=== PATIENT | male | born 1950 | race Caucasian/White ===

== ENCOUNTER 2022-04-06 21:47 | Emergency (ER) | payer MEDICARE, SELFPAY ==
[2022-04-06] VITALS (91 sets, daily range): BP systolic 104–169; BP diastolic 57–89; PULSE 62–178; RESP 10–28; TEMP 36.4–36.7; O2SAT 90–99
--- NOTE | 2022-04-06 21:45 | RT.EKG_ITS ---
APPROVED REPORT Exam: Resting ECG Reason for Exam: chest pain Patient Location: E HR:107 bpm ECG Measurements Heart Rate 107 AXIS ME 227 P 33 QRSd 132 QRS -36 QT 369 T 80 QTc 492 Conclusion Sinus tachycardia. Ventricular tachycardia, unsustained.. Prolonged ME interval...ME >215, V-rate 91-120 Left bundle branch block...QRSd>120, broad/notched R
--- NOTE | 2022-04-06 21:45 | DI.RAD_ITS ---
Exam(s) XR PORTABLE CHEST AP EXAM: XR PORTABLE CHEST AP CLINICAL HISTORY: recurrent vtach TECHNIQUE: 2D digital imaging was performed. COMPARISON: No exams were available for comparison FINDINGS: The papillary pads project over the chest. LUNGS: Clear. No pleural abnormality seen. HEART: Normal size. Pacemaker. AORTA: Normal diameter. BONES: Degenerative changes in the spine Soft tissues: Unremarkable. IMPRESSION: No acute findings. DATA REPOSITORY: RADIATION DOSE DELIVERED:
[2022-04-06] MEDS: MAGNESIUM SULFATE 2 GM/50 ML BAG 100 GM (21:53)
[2022-04-06] MEDS: Amiodarone 150 MG/3 ML VIAL IVP (21:55)
--- NOTE | 2022-04-06 21:57 | ED.GENADUL_ITS ---
Discharge Plan Disposition Patient Disposition: Transfer-Acute Inpatient Care Specific Acute Inpt Facility: [facility] Condition: Critical Discharge Details Clinical Impression: Recurrent ventricular tachycardia Primary Care Provider: Nuzhat,Local ED Provider: Nolan Cunningham Medical Decision Making 72-year-old male states [place] to the emergency [place]. He developed sensation of fast heart rate and then had multiple, approximately 15 episodes of defibrillation/cardioversion by his pacemaker. He arrives to the ER with intermittent V. tach and further discharge of his pacemaker device. He is placed on a associate chief nurse, IV access x2 established. Patient given rhythm control with completion of amiodarone bolus and infusion, he was given 2 g of magnesium and 100 mg of lidocaine. Patient had recurrent runs of cyst stained monomorphic V. tach and is internal defibrillator continue to correct these. He was given an additional 2 g of magnesium, 1 amp of calcium gluconate and placed on an esmolol drip. Screening laboratories and chest x-ray obtained. White count 12, hematocrit 43, platelets 282. Troponin elevated at 291. BNP is 2650. BUN 38, creatinine 2.0. Sodium 145, potassium 3.6, chloride 106, bicarb 29. No acute cardiopulmonary abnormality on chest x-ray. I discussed the case with on-call cardiology at the [facility], Dr. Berry. He agrees with our current management and the need for urgent transfer. Lab Data Lab results reviewed: Yes I reviewed the patient's lab results. Labs: Laboratory Results - last 24 hr 04/06/22 04/06/22 04/06/22 22:04 22:04 22:04 WBC 12.67 H RBC 4.74 Hgb 14.1 Hct 43.3 MCV 91 MCH 29.7 MCHC 32.6 RDW 13.2 Plt Count 282 MPV 9.2 Immature Gran % 0.6 Neutrophils % 68.3 Lymphocytes % 17.4 Monocytes % 9.5 Eosinophils % 3.6 Basophils % 0.6 Nucleated RBC % 0.0 Absolute Neutrophils 8.65 H Absolute Lymphocytes 2.20 Absolute Monocytes 1.20 H Absolute Eosinophils 0.46 Absolute Basophils 0.08 PT 9.9 INR 1.0 APTT 25.7 Sodium 145 Potassium 3.6 Chloride 106 Carbon Dioxide 29.1 Anion Gap 9.9 BUN 38 H Creatinine 2.0 H Est GFR (CKD-EPI 2020) 34.59 Glucose 159 H Calcium 8.8 Magnesium 1.8 Total Bilirubin 0.4 AST 31 ALT 21 Alkaline Phosphatase 75 Troponin I 291 H* NT-Pro-B Natriuret Pep 2650 H Total Protein 7.1 Albumin 3.5 COVID-19 Source 04/06/22 22:50 WBC RBC Hgb Hct MCV MCH MCHC RDW Plt Count MPV Immature Gran % Neutrophils % Lymphocytes % Monocytes % Eosinophils % Basophils % Nucleated RBC % Absolute Neutrophils Absolute Lymphocytes Absolute Monocytes Absolute Eosinophils Absolute Basophils PT INR APTT Sodium Potassium Chloride Carbon Dioxide Anion Gap BUN Creatinine Est GFR (CKD-EPI 2020) Glucose Calcium Magnesium Total Bilirubin AST ALT Alkaline Phosphatase Troponin I NT-Pro-B Natriuret Pep Total Protein Albumin COVID-19 Source Nasal/Nares HPI General Mode of arrival: EMS . Date/Time Provider Initiated Documentation: 04/06/22 21:49 . Limitations to Documentation: no limitations . Information obtained by: patient . History of Present Illness 72 year old M presents to the emergency department with the chief complaint of Recurrent V. tach and pacemaker firing, described as severe and similar to prior episodes, and is localized to the chest. Patient started experiencing this minute(s) and it has been intermittent. No relieving factors improve symptom(s), No exacerbating factors reported . Patient did receive the following treatments prior to arrival, other (Amiodarone infusion initiated by EMS) Related Data Allergies Allergy/AdvReac Type Severity Reaction Status Date / Time No Known Allergies Allergy Unverified 04/06/22 21:48 Review of Systems Narrative: States he has a history of recurrent V. tach. Been taking his medication. Denies illness. Denies chest pain. No syncope. 8 systems were reviewed and otherwise negative [facility] All Active Problems (Updated 04/06/22 @ 22:34 by Nolan Cunningham MD) Recurrent ventricular tachycardia (Acute) Social History Smoking/Tobacco Use Status: Current every day Tobacco Type: cigarettes Years smoked: 60 Smoking risk assessment performed?: Yes Alcohol Intake: current Alcohol Intake frequency: holidays/special occasions only Alcohol type: beer, wine and hard liquor Drug use: Never Substance use type: does not use Do you feel safe at home: Yes Do you feel safe in your relationship?: Yes Exam Narrative Exam Narrative: GEN: awake, alert, oriented 3. Pleasant, well groomed, interactive. HEAD: Normocephalic, atraumatic ENT: Mucous membranes moist, oropharynx unremarkable, External ear exam unremarkable EYES: PERRL, EOMI NECK: Full ROM, no LUCIEN, no menigismus CHEST/RESP: Nontender, clear to auscultation bilateral, no wheeze/rhonchi/rales CARDIOVASCULAR: Regular and rapid, no murmur, rub kd. 2+ Rad pulse bilateral ABDOMEN: Soft, nontender, no mass. +Bowel sounds EXT: Full ROM, no edema, no rash Neuro: Grossly normal neurologic exam, conversant, interactive. Psych: Speech fluent, thoughts congruent, affect normal Critical Care Time Critical Care Time Critical Care Time: Yes Total Critical Care Time: 45 Attestation: Bedside care, discussion with consultants and family.
[2022-04-06 22:10] LABS: Abs Immature Grans 0.07 10^3/uL (0.0-0.06); Basophils % 0.6; Eosinophils % 3.6; HCT 43.3 % (40.0-50.0); HGB 14.1 g/dL (13.5-17.5); Immature Grans % 0.6; Lymphocytes % 17.4; MCH 29.7 pg (27.0-33.0); MCHC 32.6 % (32.0-36.0); MCV 91 fL (80-95); MPV 9.2 fL (8.0-11.0); Monocytes % 9.5; Neutrophils % 68.3; Platelet Count 282 10^3/uL (130-400); RBC 4.74 10^6/uL (4.36-5.78); RDW 13.2 % (11.8-14.1); RDW-SD 44.1 fL; WBC 12.67 10^3/uL (4.4-10.8)
[2022-04-06 22:11] LABS: Absolute Basophil Count 0.08 10^3/uL (0.0-0.2); Absolute Eosinophil Count 0.46 10^3/uL (0.0-0.7); Absolute Neutrophil Count 8.65 10^3/uL (1.2-6.7)
[2022-04-06] MEDS: MAGNESIUM SULFATE 2 GM/50 ML BAG IVPB (22:12)
[2022-04-06] MEDS: Calcium Gluconate 4.65 MEQ/10 ML VIAL 4.65 MG IVP (22:21)
[2022-04-06] MEDS: DEXTROSE 5%-WATER 250 ML (22:22)
[2022-04-06] MEDS: Normal Saline 1,000 ML 1000 ML IV (22:23)
[2022-04-06] MEDS: Amiodarone 150 MG/3 ML VIAL (22:25)
--- NOTE | 2022-04-06 22:29 | DI.VRAD_ITS ---
PROCEDURE INFORMATION: Exam: XR Chest Exam date and time: 04/06/2022 9:56 PM Age: 72 years old Clinical indication: Other: Recurrent vtach TECHNIQUE: Imaging protocol: Radiologic exam of the chest. Views: 1 view. COMPARISON: No relevant prior studies available. FINDINGS: Tubes, catheters and devices: Left subclavian transvenous pacemaker/AICD in place. Defibrillator pads project over the thoracesAtherosclerotic vascular disease. Lungs: Normal. Pleural spaces: Unremarkable. No pleural effusion. No pneumothorax. Heart/Mediastinum: Normal. Bones/joints: Multilevel thoracic spine degenerative disc space narrowing and osteophyte formation. IMPRESSION: No acute cardiopulmonary abnormality. Dictated and Authenticated by: Keenan Leigh MD. Ordering:CAS Francisco MD
[2022-04-06 22:31] LABS: PTT Activated 25.7 sec (21.0-27.5); Prothrombin Time 9.9 sec (9.3-11.0)
[2022-04-06 22:36] LABS: ALT 21 U/L (16-63); AST 31 U/L (15-37); Albumin 3.5 g/dL (3.4-5.0); Alkaline Phosphatase 75 U/L (46-116); Anion Gap 9.9 mmol/L (3-11); BUN 38 mg/dL (7-18); Bilirubin, Total 0.4 mg/dL (0.2-1.0); CO2 29.1 mmol/L (21.0-32.0); Calcium 8.8 mg/dL (8.5-10.1); Chloride 106 mmol/L (98-107); Estimated GFR 34.59 (mL/min/1.73m2); Glucose 159 mg/dL (74-106); Magnesium 1.8 mg/dL (1.8-2.4); NT-proBNP 2650 pg/mL (<300); Potassium 3.6 mmol/L (3.5-5.1); Sodium 145 mmol/L (136-145); Total Protein 7.1 g/dL (6.4-8.2)
[2022-04-06 22:48] LABS: Troponin I 291 ng/L (<or=60)
[2022-04-06] MEDS: ESMOLOL 2,500 MG/250 ML BAG 43.6 MG IV (22:49)
[2022-04-06] MEDS: Amiodarone in Dextrose 360 MG/200 ML BAG 33.3 MG IV (22:53)
[2022-04-06 22:55] LABS: Source Nasal/Nares
[2022-04-06] MEDS: Lidocaine 1% Multi-Dose 20 ML VIAL (22:55)
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
[2022-04-06 23:24] LABS: COVID-19 PCR Negative (Negative)
[2022-04-07] VITALS (150 sets, daily range): BP systolic 126–150; BP diastolic 51–76; PULSE 42–80; RESP 10–26; O2SAT 86–99
[2022-04-07] MEDS: Metoprolol 5 MG/5 ML VIAL 2.5 MG IVP ×2 (00:01→00:12)
[2022-04-07 00:51] LABS: Troponin I 3408 ng/L (<or=60)
[2022-04-07] MEDS: ESMOLOL 2,500 MG/250 ML BAG 98.9 MG IV ×2 (01:47→03:54)
[2022-04-07] MEDS: Amiodarone in Dextrose 360 MG/200 ML BAG 33.3 MG IV (04:15)
--- NOTE | 2022-04-08 08:57 | NUR.NOTE ---
Nursing Note: Accessed patient chart to determine how many EKG orders were in the chart from the ED. There was an outstanding EKG in ordered status. There are no EKG's in the Personally system that are outstanding. EKG order was deleted.
== END 2022-04-07 04:36 | disposition short-term general hospital (02) ==
PROVIDERS: Emergency Provider Emergency Medicine
DX: I47.20 Ventricular tachycardia, unspecified (principal); Z20.822 Contact with and (suspected) exposure to COVID-19; R07.9 Chest pain, unspecified; Z95.0 Presence of cardiac pacemaker; R06.02 Shortness of breath
CPT/HCPCS: 36416; 80053; 82962; 87635; 93005; 96365; 96366; 96368; 96375; 96376; 99291; 71045; 83735; 83880; 84484; 85025; 85610; 85730; 93010; J0610; J3490

== ENCOUNTER 2025-01-12 08:04 | Outpatient (REF) | payer MEDICARE, SELFPAY ==
--- NOTE | 2025-01-12 07:42 | SKI_PTH ---
PATIENT: Abdoul Mcconnell LOC: [facility] U#:[id number] AGE/SX: 74/M ROOM: RE01/12/[address]: Dorian Kerr MD : 1950 BED: DIS: 01/12/2025 SPEC #: [id number] RECD: 01/12/25 15:47 STATUS: DALE REQ #: [id number] KERI: 01/12/25 07:[address]: Dorian Kerr DEPT: Surgical Specimen RECD BY: Tamy Thao ENTERED: 01/12/25 15:47 SP TYPE: JORGE LUIS JHAVERI DR: Fela Santiago Tissues: 1 - SKIN BIOPSY(SHAVE/PUNCH) Procedures: SKIN LEVEL 4 Comments: [id number]
== END 2025-01-12 08:05 | disposition home or self-care (01) ==
LOC: NCHCN 08:04
PROVIDERS: PCP Internal Medicine; Visit Provider Otolaryngology
DX: C43.21 Malignant melanoma of right ear and external auricular canal (principal)
CPT/HCPCS: 88305